=== PATIENT | female | born 1955 | race Hispanic/Latino ===

== ENCOUNTER 2021-06-07 20:33 | Inpatient (IN) | payer BC ==
[~2021-06-07] VITALS: Ht 162.6 cm; Wt 76.2 kg
[2021-06-07] MEDS ORDERED: KETOROLAC 15MG/ML VIAL (15MG/ML) IV ONE (21:00)
[2021-06-07] MEDS ORDERED: MORPHINE 2 MG SYG IVP ONE (21:00)
[2021-06-07] MEDS ORDERED: 0.9%NACL 1000ML 1,000 ML IV ONE ×2 (21:00→21:02)
[2021-06-07] MEDS ORDERED: ONDANSETRON 4MG INJ IVP ONE (21:00)
[2021-06-07] MEDS ORDERED: KETOROLAC 15MG/ML VIAL (15MG/ML) ONE (21:01)
[2021-06-07] MEDS ORDERED: ONDANSETRON 4MG INJ ONE (21:01)
[2021-06-07 21:02] LABS: APPEARANCE,URINE CLEAR (CLEAR); BASOPHILS % (AUTO) 0.5 % (0.0-5.0); BILIRUBIN,URINE NEGATIVE (NEGATIVE); COLOR,URINE YELLOW (YELLOW); EOSINOPHILS % (AUTO) 4.4 % (0.0-8.0); GLUCOSE, URINE (UA) NEGATIVE (NEGATIVE); HEMATOCRIT 41.6 % (36-48); KETONES,URINE NEGATIVE (NEGATIVE); LEUKOCYTE ESTERASE ,URINE MODERATE (NEGATIVE); LYMPHOCYTES % (AUTO) 19.5 % (21.0-51.0); MEAN CORPUSCULAR HEMOGLOBIN 28.6 pg (27.0-33.0); MEAN CORPUSCULAR HGB CONC 32.7 g/dL (32.0-36.0); MEAN CORPUSCULAR VOLUME 87.4 fL (79-99); MONOCYTES % (AUTO) 8.9 % (3.0-13.0); NEUTROPHILS % (AUTO) 66.4 % (40.0-77.0); NITRATE,URINE NEGATIVE (NEGATIVE); OCCULT BLOOD,URINE NEGATIVE (NEGATIVE); PLATELET COUNT (AUTO) 324 K/uL (130-400); PROTEIN,URINE NEGATIVE (NEGATIVE); RED BLOOD CELL COUNT(AUTO) 4.76 MIL/uL (4.00-5.50); RED CELL DISTRIBUTION WIDTH 12.8 % (11.0-15.5); UROBILINOGEN,URINE 0.2 mg/dL (0.2-1.0); WHITE BLOOD COUNT (AUTO) 6.7 K/uL (4.8-10.8)
[2021-06-07] MEDS ORDERED: MORPHINE 2 MG SYG ONE (21:02)
[2021-06-07 21:12] LABS: CREATININE 0.7 mg/dL (0.5-1.5); POTASSIUM 3.5 mmol/L (3.5-5.1)
[2021-06-07 21:17] LABS: ALBUMIN 3.5 g/dL (3.5-5.0); BILIRUBIN,TOTAL 0.5 mg/dL (0.2-1.0); TOTAL PROTEIN, SERUM 7.4 g/dL (6.0-8.3)
[2021-06-07 21:27] LABS: BACTERIA,URINE Few /HPF (None Seen); RBC,URINE 0-1 /HPF (0-1); SQUAMOUS EPITHELIAL CELL,UR Few /HPF (0-2)
[2021-06-07 21:28] LABS: TRANSITIONAL EPI CELLS,URINE Rare /HPF (None Seen)
[2021-06-07] MEDS ORDERED: ZOSYN 3.375GM+NS 50ML 50 ML ONE (23:44)
[2021-06-07] MEDS ORDERED: 0.9%NACL 50ML 50 ML IV ONE (23:44)
[2021-06-08] MEDS ORDERED: ZOSYN 3.375GM +NS 50ML IV SCH
[2021-06-08] MEDS ORDERED: MORPHINE 2 MG SYG IV PRN (02:30)
[2021-06-08] MEDS ORDERED: ONDANSETRON 4MG INJ IV PRN (02:30)
[2021-06-08] MEDS ORDERED: LIDOCAINE HCL-MPF 1% 2ML VIAL IV PRN (02:30)
[2021-06-08] MEDS ORDERED: 0.9%NACL 1000ML 1,000 ML IV SCH (02:30)
[2021-06-08] MEDS ORDERED: POTASSIUM CHLORIDE 20MEQ/100ML 100 ML IV PRN (02:30)
[2021-06-08] MEDS ORDERED: MORPHINE 4 MG SYG IV PRN (02:30)
[2021-06-08] MEDS ORDERED: MAGNESIUM 2GM PREMIX 50ML 50 ML IV PRN (02:30)
[2021-06-08] MEDS ORDERED: ZOSYN 3.375GM+NS 50ML 50 ML IV SCH (05:00)
[2021-06-08] MEDS ORDERED: 0.9%NACL 50ML 50 ML IV ONE (05:04)
[2021-06-08 05:39] LABS: HEMOGLOBIN A1C 6.2 % (4.0-6.0)
[2021-06-08 05:42] LABS: INR 0.99 (0.85-1.15); PROTHROMBIN TIME 10.8 SEC (9.6-11.6)
[2021-06-08 05:44] LABS: PARTIAL THROMBOPLASTIN TIME 26.8 SEC (26.3-35.5)
[2021-06-08 05:54] VITALS: BP 149/85
[2021-06-08 05:54] LABS: MAGNESIUM 2.1 mg/dL (1.80-2.40); PHOSPHORUS 4.2 mg/dL (2.5-4.9)
[2021-06-08 07:30] VITALS: BP 162/69
[2021-06-08] MEDS ORDERED: FAMOTIDINE 20MG VIAL IV SCH (09:00)
[2021-06-08 11:00] VITALS: BP 144/73
== END 2021-06-08 14:07 | disposition home or self-care (01) | DRG 445 ==
LOC: EDH 20:33 → EDHIP 06-08 02:07 → 4DH 06-08 05:36
PROVIDERS: ADMIT Internal Medicine; ATTEND Internal Medicine
DX: K80.10 Calculus of gallbladder with chronic cholecystitis without obstruction (principal); N39.0 Urinary tract infection, site not specified; E11.65 Type 2 diabetes mellitus with hyperglycemia; Z20.822 Contact with and (suspected) exposure to COVID-19; I10 Essential (primary) hypertension; E78.5 Hyperlipidemia, unspecified
CPT/HCPCS: 36415; 76705; 80053; 81001; 82948; 83036; 83690; 83735; 84100; 84484; 85025; 85610; 85730; 86850; 86900; 86901; 87088; 87635; 93005; G0378; J1885; J2405; J2543; J3490; J7030